=== PATIENT | female | born 2000 | race Caucasian/White ===

== ENCOUNTER → 2022-06-30 | Outpatient (CLI) | payer BC ==
[2022-06-30 10:29] VITALS: BP 111/74; PULSE 91; RESP 16; TEMP 98
--- NOTE | 2022-06-30 11:45 | P.PN ---
Subjective Progress Note Date: 06/30/22 Lauren is a 22 year old white female seen in consultation for Denise Ren regarding a nodule in her right breast. The patient can feel a distinct area of a lump in her right areolar region approximately 8:00. It has been present for several months. It does not change. It does not change with her menstrual cycle. It is tender to palpation. It has gotten larger. She is not complaining of any nipple discharge. She is not complaining of any trauma or infection in her breast. She has not had any surgery on her breast. She is taking BCP, and has been taking them for three years. An ultrasound-guided core biopsy of the lesion in the right breast and 3123. This revealed benign breast with fibrocystic changes. This causes no change in the size of the lesion. 06-30-22 Bilateral breast ultrasoun was done on 06-12-22. This was reviewed with Dr. Kohler this revealed in the right breast at 8:00 a 1 x 0.6 cm lesion the area of which was biopsied and revealed fibrocystic disease. In the left breast at 4:00 there is a 1.3 x 1.5 x 0.7 cm area of hypoechoic change and at 12:00 is a hypoechoic well-circumscribed 0.5 x 1.4 cm area. These are felt to be benign BIRADS 3 and repeat bilateral ultrasound in 6 months was recommended. Stable right breast lesion which may still be discordant after review with Dr. Kohler and recommendation was for removal of this site. She states that this is tender and additionally complains of a tender lesion in the 4 o'clock position of the left breast. nicotine: none caffiene: occasional chocolate: weekly Hormonal History: menarche: 15 G0 LMP: now Family History: paternal grandmother: ovarian cancer maternal grandmother: skin cancer Surgical History: tonsil core breast biopsy Medical History: none Social History: 19: Negative Alcohol: Occasional Drugs: Negative - Constitutional Constitutional: Denies chills, Denies fever - EENT Eyes: denies blurred vision, denies pain Ears: deny: decreased hearing, tinnitus Ears, nose, mouth and throat: Denies headache, Denies sore throat - Breasts Breasts: bilateral: as per HPI - Cardiovascular Cardiovascular: Denies chest pain, Denies shortness of breath - Respiratory Respiratory: Denies cough - Gastrointestinal Gastrointestinal: Denies abdominal pain, Denies diarrhea, Denies nausea, Denies vomiting - Genitourinary (Female) Genitourinary: Denies dysuria, Denies hematuria - Menstruation Menstruation: Reports as per HPI - Musculoskeletal Musculoskeletal: Denies myalgias - Integumentary Integumentary: Denies pruritus, Denies rash - Neurological Neurological: Denies numbness, Denies weakness - Psychiatric Psychiatric: Reports anxiety, Denies depression - Endocrine Endocrine: Reports weight change, Denies fatigue - Hematologic/Lymphatic Comment: one - Allergic/Immunologic Comment: none Past Medical History Past Medical History: No Reported History History of Any Multi-Drug Resistant Organisms: None Reported Past Surgical History: Adenoidectomy, Tonsillectomy Additional Past Surgical History / Comment(s): wisdom teeth Past Anesthesia/Blood Transfusion Reactions: No Reported Reaction Past Psychological History: Anxiety Smoking Status: Never smoker Past Alcohol Use History: Rare Past Drug Use History: None Reported Medications and Allergies Home Medications Medication Instructions Recorded Confirmed Type Sertraline [Zoloft] 200 mg PO DAILY 05/22/22 05/22/22 History Allergies Allergy/AdvReac Type Severity Reaction Status Date / Time No Known Allergies Allergy Verified 06/07/22 10:52 Objective - Vital Signs Vital signs: Vital Signs Temp 98.0 F 06/30/22 10:25 Pulse 91 06/30/22 10:25 Resp 16 06/30/22 10:25 BP 111/74 06/30/22 10:25 Pulse Ox 99 06/30/22 10:25 FiO2 Intake & Output 06/29/22 06/30/22 06/30/22 18:59 06:59 18:59 Weight 54.431 kg - Constitutional General appearance: Present: cooperative - EENT Eyes: Present: EOMI ENT: Present: hearing grossly normal - Neck Neck: Present: normal ROM - Respiratory Respiratory: bilateral: CTA - Cardiovascular Heart sounds: normal: S1, S2 - Integumentary Integumentary: Present: normal turgor - Musculoskeletal Musculoskeletal: Present: gait normal - Psychiatric Psychiatric: Present: A&O x's 3, appropriate affect, intact judgment & insight - Additional findings Additional findings: Breast Exam: BRA: 32A Inspection: Bilateral grade 1 ptosis Palpation: Right breast: Multi-positional exam fibrocystic changes, at the 8:00 periareolar region there is approximately a 1 cm area of very firm nodularity which corresponds to the region seen on ultrasound Right axilla: No adenopathy of concern Left breast: Multi-positional exam fibrocystic changes at the 4 to 5:00 periareolar region there is some nodularity which was not as discrete as that on the right breast; left breast 12:00 does not reveal any discrete lesions on examination Left axilla: No adenopathy of concern Assessment and Plan Assessment: Impression: Palpable mass right breast at 8:00, left breast at 4:00 Plan: Resection palpable mass right breast at 8:00 and left breast at 4:00. Patient understands risks and benefits and wishes to proceed. This was scheduled in the near future Cc: Denise Ren
== END ==
LOC: WWCWWP 10:17
PROVIDERS: ATTEND Surgery
DX: N63.13 Unspecified lump in the right breast, lower outer quadrant (principal); R92.8 Other abnormal and inconclusive findings on diagnostic imaging of breast; N63.14 Unspecified lump in the right breast, lower inner quadrant; N63.23 Unspecified lump in the left breast, lower outer quadrant; N63.24 Unspecified lump in the left breast, lower inner quadrant; Z80.41 Family history of malignant neoplasm of ovary; Z80.8 Family history of malignant neoplasm of other organs or systems